=== PATIENT | female | born 1990 | race Caucasian/White ===

== ENCOUNTER 2017-11-05 05:24 | Emergency (ER) | payer MEDICAID ==
--- NOTE | 2017-11-05 05:43 | Emergency Department Record ---
History of Present Illness - General Source: Patient Mode of Arrival: Ambulatory Limitations: No limitations - History of Present Illness Initial Comments: 27 yo female presents with nausea, lightheadedness, and lower pelvic pain. The patient awoke at 4am for work. She noted a little bit of nausea. She was driving to work and developed lower abdominal pain that started on the left but now goes across the abdomen. While driving she became nauseated and lightheaded. She denies any recent illnesses or changes in her health. No diarrhea or fever. She states her menstrual cycles have been regular. She has had ovarian cysts in the past. She has had three uncomplicated pregnancies that were all vaginal deliveries. No abdominal surgery history. MD Complaint: Abdominal pain (Pelvic pain) -: Hour(s) (30) Location: LLQ, RLQ Radiation: LLQ, RLQ Migration to: LLQ, RLQ Severity: Moderate Quality: Aching Consistency: Constant Improves With: Rest Worsens With: Movement Associated Symptoms: Anorexia, Nausea <MIGEL HARRIS - Last Filed: 11/05/17 06:48> <Leonid Anglin - Last Filed: 11/05/17 08:20> - General Chief Complaint: Abdominal Pain Stated Complaint: DIZZY/ABDOMINAL PAIN Time Seen by Provider: 11/05/17 05:28 - Related Data Previous Rx's Medication Instructions Recorded Naproxen [Naprosyn] 500 mg PO BID #14 tablet. 11/05/17 Allergies Allergy/AdvReac Type Severity Reaction Status Date / Time No Known Allergies Allergy . Verified 11/05/17 05:36 Review of Systems Constitutional: Denies: Chills, Fever, Malaise, Weakness Eyes: Denies: Eye discharge ENT: Denies: Congestion, Throat pain Respiratory: Denies: Cough, Dyspnea Cardiovascular: Denies: Chest pain, Syncope Endocrine: Denies: Fatigue, Polydipsia, Polyuria Gastrointestinal: Reports: As per HPI, Abdominal pain, Nausea. Denies: Constipation, Diarrhea, Hematemesis, Hematochezia, Vomiting Genitourinary: Denies: Abnormal menses, Dysuria, Hematuria, Urgency Musculoskeletal: Denies: Arthralgia, Back pain, Joint swelling, Myalgia Skin: Denies: Bruising, Change in color, Rash Neurological: Denies: Numbness, Weakness Psychiatric: Denies: Anxiety Hematological/Lymphatic: Denies: Anemia, Easy bleeding, Easy bruising <MIGEL HARRIS - Last Filed: 11/05/17 06:48> Physical Exam - General General Appearance: Alert, Oriented x3, Cooperative, No acute distress Limitations: No limitations - Head Head exam: Normal inspection - Eye Eye exam: Normal appearance. negative: Conjunctival injection, Scleral icterus - ENT ENT exam: Normal exam, Mucous membranes moist Ear exam: Normal external inspection Nasal Exam: Normal inspection Mouth exam: Normal external inspection - Neck Neck exam: Normal inspection, Full ROM. negative: Tenderness - Respiratory Respiratory exam: Normal lung sounds bilaterally. negative: Respiratory distress - Cardiovascular Cardiovascular Exam: Regular rate, Normal rhythm, Normal heart sounds - GI/Abdominal GI/Abdominal exam: Soft, Tenderness (tender across the lower abdomen in the pelvic area). negative: Guarding, Rebound, Rigid - Rectal Rectal exam: Deferred - exam: Adnexal tenderness (L), Normal speculum exam, Vaginal discharge (thin white). negative: Abnormal external exam, Adnexal mass (L), Adnexal mass (R), Adnexal tenderness (R), Cervical discharge, cervical motion tenderness, Vaginal bleeding, Vaginal erythema - Extremities Extremities exam: Normal inspection - Back Back exam: Reports: Normal inspection. Denies: CVA tenderness (R), CVA tenderness (L) - Neurological Neurological exam: Alert, Oriented X3 - Psychiatric Psychiatric exam: Normal affect, Normal mood - Skin Skin exam: Dry, Intact, Normal color, Warm <MIGEL HARRIS - Last Filed: 11/05/17 06:48> Course Vital Signs 11/05/17 05:30 Temperature 98.2 F Pulse Rate [ 81 Pulse Ox Probe] Respiratory 20 Rate Blood Pressure 110/56 [Left Arm] Pulse Ox 100 - Reevaluation(s) Reevaluation #1: 11/05/17 06:04 The CBC was reviewed No acute changes. Normal WBC and CBC The UA was negative for infection, trace blood UCG is negative 11/05/17 06:27 No changes in the CMP or Lipase 11/05/17 06:28 The wet prep is negative for trich or yeast The patient reports her pain is controlled at this time 11/05/17 07:00 The case was discussed and turned over to Dr Anglin at shift turnover Please see his documentation for additional results of the US The patient reports she is comfortable and declined any pain medication at this time <MIGEL HARRIS - Last Filed: 11/05/17 06:48> Vital Signs 11/05/17 11/05/17 11/05/17 05:30 06:27 06:56 Temperature 98.2 F Pulse Rate [ 81 70 74 Pulse Ox Probe] Respiratory 20 20 20 Rate Blood Pressure 110/56 103/43 108/54 [Left Arm] Pulse Ox 100 100 11/05/17 07:50 Temperature 98.3 F Pulse Rate [ 70 Pulse Ox Probe] Respiratory 18 Rate Blood Pressure 114/52 [Left Arm] Pulse Ox 98 - Reevaluation(s) Reevaluation #2: The patient is doing better at this time and I did discuss the US results with her. She states her pain is very minimal presently and she is up walking with no significant discomfort. On exam her abdomen is soft with no tenderness to palpation in all 4 quads. I did explain to the patient the need for Naprosyn for pain and F/U with her [employer] next week. 11/05/17 08:14 <Leonid Anglin - Last Filed: 11/05/17 08:20> Medical Decision Making - Lab Data Result diagrams: 11/05/17 05:50 11/05/17 05:53 <MIGEL HARRIS - Last Filed: 11/05/17 06:48> - Data Complexity MDM Data: X-Ray Ordered and/or Reviewed (Pelvic US: Small to moderate amount of complex free fluid, Prob ruptured ovarian cyst.) - Lab Data Result diagrams: 11/05/17 05:50 11/05/17 05:53 Lab Results 11/05/17 11/05/17 11/05/17 Range/Units 05:42 05:50 05:53 WBC 9.4 (4.2-12.2) K/uL RBC 4.64 (3.80-5.40) M/uL Hgb 13.5 (11.6-16.0) gm/dl Hct 40.7 (35.0-47.0) % MCV 87.7 (81-97) fl MCH 29.1 (27-33) pg MCHC 33.2 (32-36) g/dl RDW 13.4 (11.5-14.5) % Plt Count 294 (130-400) K/uL MPV 10.1 (7.4-10.4) fl Gran % 52.9 (47-80) % Lymphocytes % 35.3 (16-45) % Monocytes % 7.9 (0-9) % Eosinophils % 3.5 (0-6) % Basophils % 0.4 (0-6) % Sodium 140 (136-145) mmol/L Potassium 4.2 (3.4-4.5) mmol/L Chloride 105 (98-107) mmol/L Carbon Dioxide 22.0 (22-29) mmol/L Anion Gap 13.0 (7-16) BUN 13 (6-20) mg/dL Creatinine 0.5 (0.5-0.9) mg/dL Estimated GFR > 60 mL/min Random Glucose 104 (74-109) mg/dL Calcium 8.3 L (8.6-10.0) mg/dL Total Bilirubin 0.30 (0.2-1.0) mg/dL AST 15 (10.0-35.0) U/L ALT 16 (<33) U/L Alkaline Phosphatase 64 (35-104) U/L Total Protein 6.6 (6.6-8.7) g/dL Albumin 4.1 (4.0-5.0) g/dL Globulin 2.5 (1.4-4.8) gm/dL Albumin/Globulin Ratio 1.6 (1.1-1.8) Lipase 46 (13-60) U/L Urine Color Yellow Urine Appearance Clear Urine pH 6.0 (5.0-8.0) Ur Specific [place] 1.025 (1.002-1.030) Urine Protein Negative (NEGATIVE) Urine Glucose (UA) Negative (NEGATIVE) Urine Ketones Negative (NEGATIVE) Urine Blood Small H (NEGATIVE) Urine Nitrite Negative (NEGATIVE) Urine Bilirubin Negative (NEGATIVE) Urine Urobilinogen 0.2 (0.20 - 1.00) E.U./dL Ur Leukocyte Esterase Negative (NEGATIVE) Urine RBC 0 - 2 (NONE SEEN) Urine WBC 0 - 2 (0-2/hpf) Ur Epithelial Cells 0 - 2 (FEW) Urine Bacteria None seen Urine HCG, Qual Negative (NEGATIVE) Wet Prep (NONE SEEN) 11/05/17 Range/Units 06:10 WBC (4.2-12.2) K/uL RBC (3.80-5.40) M/uL Hgb (11.6-16.0) gm/dl Hct (35.0-47.0) % MCV (81-97) fl MCH (27-33) pg MCHC (32-36) g/dl RDW (11.5-14.5) % Plt Count (130-400) K/uL MPV (7.4-10.4) fl Gran % (47-80) % Lymphocytes % (16-45) % Monocytes % (0-9) % Eosinophils % (0-6) % Basophils % (0-6) % Sodium (136-145) mmol/L Potassium (3.4-4.5) mmol/L Chloride (98-107) mmol/L Carbon Dioxide (22-29) mmol/L Anion Gap (7-16) BUN (6-20) mg/dL Creatinine (0.5-0.9) mg/dL Estimated GFR mL/min Random Glucose (74-109) mg/dL Calcium (8.6-10.0) mg/dL Total Bilirubin (0.2-1.0) mg/dL AST (10.0-35.0) U/L ALT (<33) U/L Alkaline Phosphatase (35-104) U/L Total Protein (6.6-8.7) g/dL Albumin (4.0-5.0) g/dL Globulin (1.4-4.8) gm/dL Albumin/Globulin Ratio (1.1-1.8) Lipase (13-60) U/L Urine Color Urine Appearance Urine pH (5.0-8.0) Ur Specific [place] (1.002-1.030) Urine Protein (NEGATIVE) Urine Glucose (UA) (NEGATIVE) Urine Ketones (NEGATIVE) Urine Blood (NEGATIVE) Urine Nitrite (NEGATIVE) Urine Bilirubin (NEGATIVE) Urine Urobilinogen (0.20 - 1.00) E.U./dL Ur Leukocyte Esterase (NEGATIVE) Urine RBC (NONE SEEN) Urine WBC (0-2/hpf) Ur Epithelial Cells (FEW) Urine Bacteria Urine HCG, Qual (NEGATIVE) Wet Prep No trich or yeast (NONE SEEN) <Leonid Anglin - Last Filed: 11/05/17 08:20> Disposition <MIGEL HARRIS - Last Filed: 11/05/17 06:48> Disposition: Discharge Time of Disposition: 08:20 <Leonid Anglin - Last Filed: 11/05/17 08:20> Clinical Impression: Pelvic pain Ovarian cyst Qualifiers: Laterality: unspecified laterality Qualified Code(s): N83.209 - Unspecified ovarian cyst, unspecified side Disposition: Home, Self-Care Condition: (1) Good Instructions: Abdominal Pain (ED) Additional Instructions: Please take Naprosyn for pain and rest when possible. Please see your [facility] doctor early next week for recheck. Return to the ER for any worsening pain, fever, or vomiting. Prescriptions: Naproxen [Naprosyn] 500 mg PO BID #14 tablet.dr Forms: Patient Portal Access Quality - Quality Measures Quality Measures: N/A - Blood Pressure Screening Does Patient Have Any of the Following: No Blood Pressure Classification: Normal BP Reading Systolic Measurement: 103 Diastolic Measurement: 43 Screening for High Blood Pressure: < Normal BP, F/U Not Required > [G8783] <MIGEL HARRIS - Last Filed: 11/05/17 06:48> - Blood Pressure Screening Does Patient Have Any of the Following: No Blood Pressure Classification: Normal BP Reading Systolic Measurement: 114 Diastolic Measurement: 52 Screening for High Blood Pressure: < Normal BP, F/U Not Required > [G8783] <Leonid Anglin - Last Filed: 11/05/17 08:20>
[2017-11-05] MEDS: 0.9 % SODIUM CHLORIDE 1,000 ML BAG IV ONE ×2 (05:52→07:53)
[2017-11-05] MEDS: ACETAMINOPHEN 1,000 MG/100 ML BTL IVPB ONE (05:52)
[2017-11-05] MEDS: ONDANSETRON HCL IV 4 MG/2 ML VIAL IV ONE (05:52)
[2017-11-05 05:57] LABS: URINE APPEARANCE CLEAR; URINE BILIRUBIN NEGATIVE (NEGATIVE); URINE BLOOD SMALL (NEGATIVE); URINE COLOR YELLOW; URINE GLUCOSE (UA) NEGATIVE (NEGATIVE); URINE KETONE NEGATIVE (NEGATIVE); URINE LEUKOCYTE ESTERASE NEGATIVE (NEGATIVE); URINE NITRITE NEGATIVE (NEGATIVE); URINE PROTEIN NEGATIVE (NEGATIVE); URINE UROBILINOGEN 0.2 E.U./dL (0.20 - 1.00)
[2017-11-05 05:58] LABS: BASO % 0.4 % (0-6); EOS % 3.5 % (0-6); GRAN % 52.9 % (47-80); HEMATOCRIT 40.7 % (35.0-47.0); HEMOGLOBIN 13.5 gm/dl (11.6-16.0); LYMPH % 35.3 % (16-45); MEAN CELL VOLUME 87.7 fl (81-97); MEAN CORPUSCULAR HEMOGLOBIN 29.1 pg (27-33); MEAN CORPUSCULAR HGB CONC 33.2 g/dl (32-36); MEAN PLATELET VOLUME 10.1 fl (7.4-10.4); MONO % 7.9 % (0-9); PLATELET COUNT 294 K/uL (130-400); RED BLOOD COUNT 4.64 M/uL (3.80-5.40); RED CELL DISTRIBUTION WIDTH 13.4 % (11.5-14.5); WHITE BLOOD COUNT W/O DIFF 9.4 K/uL (4.2-12.2)
[2017-11-05 05:59] LABS: HCG,QUALITATIVE URINE NEGATIVE (NEGATIVE); URINE BACTERIA NONE SEEN; URINE EPITHELIAL CELLS 0 - 2 (FEW); URINE RBC 0 - 2 (NONE SEEN); URINE WBC 0 - 2 (0-2/hpf)
[2017-11-05 06:15] LABS: ALBUMIN 4.1 g/dL (4.0-5.0); ALKALINE PHOSPHATASE 64 U/L (35-104); ALT/SGPT 16 U/L (<33); AST/SGOT 15 U/L (10.0-35.0); BLOOD UREA NITROGEN 13 mg/dL (6-20); CREATININE 0.5 mg/dL (0.5-0.9); EST GLOMERULAR FILTRATION RATE > 60 mL/min; GLUCOSE,RANDOM 104 mg/dL (74-109); LIPASE 46 U/L (13-60); TOTAL PROTEIN 6.6 g/dL (6.6-8.7)
[2017-11-05 06:16] LABS: ALB/GLOB RATIO 1.6 (1.1-1.8)
--- NOTE | 2017-11-06 07:59 | ULTRASOUND REPORT ---
EXAM: PELVIC ULTRASOUND HISTORY: LOWER PELVIC PAIN. TECHNIQUE: Transabdominal and transvaginal sonographic images of the pelvis were obtained. Comparison: None. FINDINGS: On transabdominal images the uterus measures 9.0 x 3.4 x 6.4 cm. The endometrium and ovaries are not well seen transabdominally. The myometrium is homogeneous. On transvaginal imaging, nabothian cysts are noted. The myometrium is homogeneous. The endometrium measures 18 mm in thickness, which is considered borderline thickened for a premenopausal patient. Correlate with menstrual cycle. There is a small to moderate amount of complex free fluid. The left ovary measures 4.1 x 1.8 x 4.1 cm. The right ovary measures 3.8 x 2.3 x 2.3 cm. Bilateral ovarian follicles with a probable dominant follicle of the right ovary measuring 2.0 x 2.0 cm. No solid adnexal mass. Doppler and spectral analysis with color flow was utilized. Arterial and venous flow to both ovaries. IMPRESSION: 1. SMALL TO MODERATE AMOUNT OF FREE FLUID WHICH APPEARS SOMEWHAT COMPLEX WHICH MAY REFLECT RUPTURE OF A HEMORRHAGIC CYST. CORRELATE WITH PHASE OF MENSTRUAL CYCLE. BILATERAL OVARIAN FOLLICLES WITH A DOMINANT FOLLICLE OF THE RIGHT OVARY. 2. BORDERLINE ENDOMETRIAL THICKENING. JOB NUMBER: [id number] [facility]
[2017-11-07 00:11] LABS: GC SPECIMEN TYPE Vaginal
== END 2017-11-05 08:26 | disposition home or self-care (01) ==
LOC: ER 05:24
DX: N83.02 Follicular cyst of left ovary (principal); N83.01 Follicular cyst of right ovary; R10.2 Pelvic and perineal pain; R11.0 Nausea; R42 Dizziness and giddiness; F17.210 Nicotine dependence, cigarettes, uncomplicated
CPT/HCPCS: 76830; 76856; 80053; 81001; 81025; 83690; 85025; 87210; 96361; 96365; 96375; 99284; J2405; J7030

== ENCOUNTER 2017-12-13 16:10 | Emergency (ER) | payer MEDICAID ==
[2017-12-13] MEDS ORDERED: IBUPROFEN 600 MG TABLET PO ONE (16:37)
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
== END 2017-12-13 19:10 | disposition home or self-care (01) ==
LOC: ER 16:10
DX: S92.251A Displaced fracture of navicular [scaphoid] of right foot, initial encounter for closed fracture (principal); X50.0XXA Overexertion from strenuous movement or load, initial encounter; Y92.009 Unspecified place in unspecified non-institutional (private) residence as the place of occurrence of the external cause; F17.210 Nicotine dependence, cigarettes, uncomplicated
CPT/HCPCS: 99283; 99284

== ENCOUNTER 2018-08-15 17:48 | Emergency (ER) | payer MEDICAID ==
--- NOTE | 2018-08-15 18:18 | Emergency Department Record ---
History of Present Illness - General Chief complaint: ENT Stated complaint: URI Time Seen by Provider: 08/15/18 18:16 Source: Patient Mode of Arrival: Ambulatory Limitations: No limitations - History of Present Illness Initial comments: 28 yo female presents to ED for evaluation of non-productive cough symptoms and congestion for the past 3-4 weeks. Patient reports intermittent fevers which have resolved, denies health problems at the patient's baseline. Patient reports that immunizations are UTD, and reports numerous children in the home have been ill with the same symptoms at home. Patient is an active smoker and is approximately 17 weeks gestation. MD complaint: Other (cough) Onset/Timin -: Week(s) Severity: Moderate Quality: Aching Consistency: Intermittent Improves with: None - Related Data Home Medications Medication Instructions Recorded Confirmed Last Taken No122/Iron/Folic Acid 1 tab PO DAILY 08/15/18 08/15/18 08/15/18 08:00 [ Multi Tablet] Allergies Allergy/AdvReac Type Severity Reaction Status Date / Time No Known Allergies Allergy . Unverified 04/14/18 16:57 Review of Systems Constitutional: Denies: Chills, Fever, Malaise, Night sweats Eyes: Denies: Eye discharge, Eye pain ENT: Reports: Congestion. Denies: Ear pain Respiratory: Reports: Cough. Denies: Dyspnea Cardiovascular: Denies: Chest pain, Dyspnea on exertion Endocrine: Denies: Fatigue, Heat or cold intolerance Gastrointestinal: Denies: Abdominal pain, Vomiting Genitourinary: Denies: Incontinence, Retention Musculoskeletal: Denies: Arthralgia, Back pain Skin: Denies: Bruising, Change in color Neurological: Denies: Abnormal gait, Confusion, Headache, Tingling, Tremors Psychiatric: Denies: Anxiety Hematological/Lymphatic: Denies: Anemia, Blood Clots Past Medical History - SOCIAL HISTORY Smoking Status: Current every day smoker Drug Use: None - RESPIRATORY Hx Respiratory Disorders: No - CARDIOVASCULAR Hx Cardio Disorders: No - NEURO Hx Neuro Disorders: No - GI Hx GI Disorders: No - Hx Genitourinary Disorders: Yes Comment:: Cysts on ovaries and uterus - ENDOCRINE Hx Endocrine Disorders: No - MUSCULOSKELETAL Hx Musculoskeletal Disorders: No - PSYCH Hx Psych Problems: No - HEMATOLOGY/ONCOLOGY Hx Hematology/Oncology Disorders: No Family Medical History Hx HTN: Grandparents Physical Exam - General General Appearance: Alert, Oriented x3, Cooperative, No acute distress Limitations: No limitations - Head Head exam: Atraumatic, Normocephalic, Normal inspection Head exam detail: negative: Abrasion, Contusion, Soriano's sign, General tenderness, Hematoma, Laceration - Eye Eye exam: Normal appearance. negative: Conjunctival injection, Periorbital swelling, Periorbital tenderness, Scleral icterus - ENT ENT exam: Normal orophraynx, TM's normal bilaterally Ear exam: negative: Auricular hematoma, Auricular trauma Nasal Exam: negative: Active bleeding, Discharge, Dried blood, Foreign body Mouth exam: negative: Drooling, Laceration, Muffled voice, Tongue elevation Throat exam: negative: Tonsillar erythema, Tonsillomegaly, R peritonsillar mass , L peritonsillar mass - Neck Neck exam: Normal inspection. negative: Meningismus, Tenderness - Respiratory Respiratory exam: Normal lung sounds bilaterally. negative: Respiratory distress, Rhonchi, Stridor, Wheezes - Cardiovascular Cardiovascular Exam: Regular rate, Normal rhythm, Normal heart sounds - GI/Abdominal GI/Abdominal exam: Soft. negative: Rebound, Rigid, Tenderness - Rectal Rectal exam: Deferred - exam: Deferred - Extremities Extremities exam: Normal inspection. negative: Pedal edema, Tenderness - Back Back exam: Denies: CVA tenderness (R), CVA tenderness (L) - Neurological Neurological exam: Alert, Normal gait, Oriented X3 - Psychiatric Psychiatric exam: Normal affect, Normal mood - Skin Skin exam: Normal color. negative: Abrasion Type of lesion: negative: abrasion Course - Reevaluation(s) Reevaluation #1: 08/15/18 18:29 Patient is well appearing on examination without evidence for bacterial etiology for her symptoms Repeat pulse 111, biox 97% Given numerous ill family members with similar symptoms, etiology is likely viral. Recommended symptomatic care as directed. Disposition Disposition: Discharge Clinical Impression: Viral URI Disposition: Home, Self-Care Condition: (2) Stable Instructions: Upper Respiratory Infection (ED) Additional Instructions: Return to ED if your symptoms worsen or if you have any concerns. Follow-up with your family doctor in 3-5 days as directed. Forms: Patient Portal Access Time of Disposition: 18:18 Quality - Quality Measures Quality Measures: N/A - Blood Pressure Screening Does Patient Have Any of the Following: No Blood Pressure Classification: Normal BP Reading Systolic Measurement: 108 Diastolic Measurement: 58 Screening for High Blood Pressure: < Normal BP, F/U Not Required > [G8728]
== END 2018-08-15 18:47 | disposition home or self-care (01) ==
LOC: ER 17:48
DX: J06.9 Acute upper respiratory infection, unspecified (principal); Z33.1 Pregnant state, incidental; F17.210 Nicotine dependence, cigarettes, uncomplicated
CPT/HCPCS: 99282

== ENCOUNTER 2019-02-15 21:22 | Emergency (ER) | payer MEDICAID ==
--- NOTE | 2019-02-15 21:34 | Emergency Department Record ---
History of Present Illness - General Chief complaint: Female Urogenital Problem Stated complaint: VAGINAL BLEEDING Time Seen by Provider: 02/15/19 21:26 Source: Patient Mode of Arrival: Ambulatory Limitations: No limitations - History of Present Illness Initial comments: The patient is here due to a 2 day hx of upper AP and leg pain and swelling. The patient is 2 weeks post from a vaginal delivery at [facility] and also started spotting yesterday. She states she passed a large clot this AM and this evening. The patient denies any nausea, vomiting, diarrhea, CP, SOB, or TANVI. She also has no hx of DVT or any known blood clotting disorders. MD Complaint: Vaginal bleeding, Other Onset/Timin -: Days(s) - Related Data Allergies Allergy/AdvReac Type Severity Reaction Status Date / Time No Known Allergies Allergy . Unverified 04/14/18 16:57 Review of Systems Constitutional: Denies: Chills, Fever Eyes: Denies: Eye discharge ENT: Denies: Congestion Respiratory: Denies: Cough, Dyspnea Past Medical History - SOCIAL HISTORY Smoking Status: Current every day smoker Drug Use: None - RESPIRATORY Hx Respiratory Disorders: No - CARDIOVASCULAR Hx Cardio Disorders: No - NEURO Hx Neuro Disorders: No - GI Hx GI Disorders: No - Hx Genitourinary Disorders: Yes Comment:: Cysts on ovaries and uterus - ENDOCRINE Hx Endocrine Disorders: No - MUSCULOSKELETAL Hx Musculoskeletal Disorders: No - PSYCH Hx Psych Problems: No - HEMATOLOGY/ONCOLOGY Hx Hematology/Oncology Disorders: No Family Medical History Hx HTN: Grandparents Physical Exam - General General Appearance: Alert, Oriented x3, Cooperative, No acute distress - Head Head exam: Atraumatic, Normocephalic - Eye Eye exam: Normal appearance, PERRL - Neck Neck exam: Normal inspection, Full ROM. negative: Tenderness - Respiratory Respiratory exam: Normal lung sounds bilaterally. negative: Respiratory distress - Cardiovascular Cardiovascular Exam: Regular rate, Normal rhythm, Normal heart sounds - GI/Abdominal GI/Abdominal exam: Soft, Normal bowel sounds, Tenderness (There is mild upper abdominal tenderness.). negative: Distended, Guarding, Rebound, Rigid - Extremities Extremities exam: Pedal edema (There is 1+ edema to the L leg and Tract to the R leg. There is no calf or thigh or posterior knee tenderness.). negative: Normal inspection Course Vital Signs 02/15/19 21:29 Temperature 99.1 F Pulse Rate [ 89 Left] Respiratory 16 Rate Blood Pressure 134/73 [Left] Pulse Ox 97 - Reevaluation(s) Reevaluation #1: The patient is doing very well at this time. She denies any pain or SOB at this time and is resting comfortably. I did discuss the issues with the patient and do feel she will need to be transferred to [facility] due to just having a baby 2 weeks ago and having the bleeding and also needing leg Dopplers and an abdominal US which we cannot perform here tonight. I then did discuss the case with Dr. Ken in the ER at [facility] and the patient was accepted in an ER to ER transfer. 02/15/19 22:10 Medical Decision Making - Data Complexity MDM Data: Labs Ordered and/or Reviewed - Lab Data Result diagrams: 02/15/19 21:45 02/15/19 21:45 Disposition Disposition: Transfer Clinical Impression: Vaginal bleeding Disposition: Acute Care Hospital Transfer Transfer To: [facility] Reason For Transfer: OB and US. Accepting Physician: Jesus Manuel Time Discussed w/Accepting Physician: 22:12 Condition: (2) Stable Time of Disposition: 22:12 Quality - Quality Measures Quality Measures: N/A - Blood Pressure Screening View Details: Yes Does Patient Have Any of the Following: No Blood Pressure Classification: Pre-Hypertensive BP Reading Systolic Measurement: 134 Diastolic Measurement: 73 Screening for High Blood Pressure: < Pre-Hypertensive BP, F/U Documented > [[id number]] Pre-Hypertensive Follow-up Interventions: Referral to alternative/primary care provider.
[2019-02-15 21:59] LABS: BASO % 0.3 % (0-6); EOS % 1.4 % (0-6); GRAN % 73.6 % (47-80); HEMATOCRIT 35.9 % (35.0-47.0); HEMOGLOBIN 11.4 gm/dl (11.6-16.0); LYMPH % 18.7 % (16-45); MEAN CELL VOLUME 87.6 fl (81-97); MEAN CORPUSCULAR HEMOGLOBIN 27.8 pg (27-33); MEAN CORPUSCULAR HGB CONC 31.8 g/dl (32-36); PLATELET COUNT 400 K/uL (130-400); RED CELL DISTRIBUTION WIDTH 13.6 % (11.5-14.5); WHITE BLOOD COUNT W/O DIFF 18.2 K/uL (4.2-12.2)
[2019-02-15 22:01] LABS: URINE APPEARANCE CLEAR; URINE BILIRUBIN NEGATIVE (NEGATIVE); URINE BLOOD TRACE-I (NEGATIVE); URINE COLOR YELLOW; URINE GLUCOSE (UA) NEGATIVE (NEGATIVE); URINE KETONE NEGATIVE (NEGATIVE); URINE LEUKOCYTE ESTERASE NEGATIVE (NEGATIVE); URINE NITRITE NEGATIVE (NEGATIVE); URINE PROTEIN NEGATIVE (NEGATIVE); URINE UROBILINOGEN 0.2 E.U./dL (0.20 - 1.00)
[2019-02-15 22:07] LABS: URINE EPITHELIAL CELLS 0 - 2 (FEW); URINE WBC 0 - 2 (0-2/hpf)
[2019-02-15 22:09] LABS: BLOOD UREA NITROGEN 11 mg/dL (6-20)
[2019-02-15 22:10] LABS: CREATININE 0.4 mg/dL (0.5-0.9); EST GLOMERULAR FILTRATION RATE > 60 mL/min; LIPASE 35 U/L (13-60); TOTAL PROTEIN 6.3 g/dL (6.6-8.7)
[2019-02-15 22:12] LABS: GLUCOSE,RANDOM 93 mg/dL (74-109)
[2019-02-15 22:15] LABS: ALBUMIN 3.6 g/dL (4.0-5.0); ALKALINE PHOSPHATASE 94 U/L (35-104); ALT/SGPT 21 U/L (<33); AST/SGOT 21 U/L (10.0-35.0); BILIRUBIN,DIRECT < 0.2 mg/dL (0-0.3)
== END 2019-02-15 22:52 | disposition short-term general hospital (02) ==
LOC: ER 21:22
DX: O72.2 Delayed and secondary postpartum hemorrhage (principal); R10.10 Upper abdominal pain, unspecified; R60.0 Localized edema; M25.552 Pain in left hip; M25.551 Pain in right hip; M79.605 Pain in left leg; M79.604 Pain in right leg; O99.335 Smoking (tobacco) complicating the puerperium; F17.210 Nicotine dependence, cigarettes, uncomplicated
CPT/HCPCS: 80048; 80076; 81001; 83690; 85025; 99285